=== PATIENT | male | born 1965 | race Caucasian/White ===

== ENCOUNTER 2016-07-17 08:29 | Emergency (ER) | payer MEDICAID ==
--- NOTE | ~2016-07-17 | CT55 ---
[facility] A Service of [facility] RADIOLOGY TEXT RESULTS PATIENT: CASSANDRA CUENCA LOCATION: [facility] : 63 UNIT #: [id number] AGE: [address]: Mariela Philip APRN SEX: M ORDER DR: [id number] [facility] [address] [place], [place] [address] [id number] E MR#: [id number] #: [id number] NAME: CASSANDRA CUENCA : 1965 SEX: M STUDY DATE/TIME: 07/17/2016 9:17 UNIT: [facility] ROOM: STUDY DESCRIPTION: CT Chest W Con Attending Physician: Mariela Philip A.P.R.N. Ordering Physician: Francisco Ayala M.D. Primary Care Physician: Primary Care Physician No MEDICAL IMAGING REPORT This report is preliminary unless electronic signature is present EXAM CT of the chest with contrast INDICATIONS Leukocytosis with a white count of 11.9. Patient fell last night and reports left rib pain. TECHNIQUE Axial CT images were obtained from the thoracic inlet through the dome of the diaphragm following the administration of intravenous contrast material. This CT exam was performed with one or more of the following radiation dose reduction techniques: Automatic exposure control, adjustment of mA and/or kV according to patient size, and iterative reconstruction. FINDINGS This patient does have left-sided rib fractures. There are acute fractures identified within the left sixth through eighth ribs. Patient also has old left 9, 10 and 12 fractures. There is probably also an old left 11th rib fracture, which is not well seen on these images. There is no pneumothorax identified, although the patient does have a trace left hemothorax. There is also some soft tissue stranding seen along the left lateral thoracic wall likely reflecting some intramuscular hematoma. The thyroid gland, trachea and esophagus appear unremarkable. There is no pericardial effusion. There are some coronary artery calcifications. Right lung appears clear. There is some scarring versus atelectasis identified within the lingula. No aggressive osseous abnormalities are seen. Patient's CT of the abdomen and pelvis will be dictated separately. IMPRESSION 1. Acute left 6th through 8th rib fractures with an associated trace left hemothorax. No pneumothorax is seen. Patient does appear to have some scarring versus atelectasis within the lingula. [facility] A Service of [facility] RADIOLOGY TEXT RESULTS PATIENT: CASSANDRA CUENCA LOCATION: [facility] : 63 UNIT #: [id number] AGE: [address]: Mariela Philip APRN SEX: M ORDER DR: 2. Old left-sided rib fractures are noted as well. Please see the body of the report for any other additional incidental findings. Dictated by... Genevieve Villasenor M.D. THIS IS AN ELECTRONICALLY VERIFIED REPORT Genevieve Villasenor M.D. at 07/19/2016 9:18 AM AFF/psc TD: 07/17/2016 20:52 JOB #: [id number] MEDICAL IMAGING REPORT COPY
--- NOTE | ~2016-07-17 | CT2 ---
[facility] A Service of [facility] & [facility] RADIOLOGY TEXT RESULTS PATIENT: CASSANDRA CUENCA LOCATION: [facility] : 63 UNIT #: [id number] AGE: [address]: Mariela Philip APRN SEX: M ORDER DR: [id number] [facility] [address] [place], [place] [address] [id number] E MR#: [id number] Acc #: [id number] NAME: CASSANDRA CUENCA : 1965 SEX: M STUDY DATE/TIME: 07/17/2016 9:17 UNIT: [facility] ROOM: STUDY DESCRIPTION: CT Abd and Pelv W Cont Attending Physician: Mariela Philip A.P.R.N. Ordering Physician: Ed Chad Ayala M.D. Primary Care Physician: Primary Care Physician No MEDICAL IMAGING REPORT This report is preliminary unless electronic signature is present EXAM Abdomen and pelvis CT HISTORY Fell last night, left rib pain, elevated white blood cell count. COMMENTS This CT exam was performed with one or more of the following radiation dose reduction techniques: Automatic exposure control, adjustment of mA and/or kV according to patient size, and iterative reconstruction. CT of the abdomen and pelvis performed during the intravenous administration of 70 mL of Isovue-370. Imaging acquired in the axial plane followed by sagittal and coronal reformatted images. There is a separate chest CT and please refer to that report. CT ABDOMEN: There are calcified lesions in the dome of the liver, probably granulomas. Suspect mild fatty infiltration of the liver allowing for the presence of IV contrast media. Splenic granulomata noted. Gallbladder unremarkable. Adrenal glands, pancreas, kidneys within normal limits. There is a small hiatal hernia. Evaluation of the pelvis shows a partially decompressed urinary bladder. Cannot exclude some bladder wall thickening and please correlate for any clinical concern for cystitis given elevated white blood cell count. There are a few diverticula in the sigmoid colon but there is no CT evidence for diverticulitis. There is moderate amount of stool in the transverse colon and right colon, especially the cecum. Some feculent material probably is in the terminal ileum. This can simply be due to an incompetent ileocecal valve. There is nothing to suggest bowel obstruction. No distended loops of small bowel are seen. The appendix is not definitely seen. I cannot exclude acute appendicitis but I do not see secondary signs of appendicitis. There is no drainable fluid collection [facility] A Service of [facility] & [facility] RADIOLOGY TEXT RESULTS PATIENT: CASSANDRA CUENCA LOCATION: [facility] : 63 UNIT #: [id number] AGE: [address]: Mariela Philip E BUSINESS SPECIALIST SEX: M ORDER DR: or free intraperitoneal air suspected. There are atherosclerotic vascular calcifications in the abdominal aorta and iliac vessels. There is a subacute appearing rib fracture left posterolateral rib, and there are more acute appearing rib fractures on the left side, multiple essentially nondisplaced. See the separate chest CT dictation. Degenerative changes in the lumbar spine. IMPRESSION 1. Partial demonstration of left rib fractures; one of these appears to be subacute. Others appear to be acute. See the separate CT chest dictation. 2. Suspect fatty infiltration of liver. Please correlate further clinically. 3. Atherosclerotic vascular calcifications. 4. The appendix is not seen but I do not see secondary signs of appendicitis. Please correlate clinically. There is nothing to suggest bowel obstruction. There is a moderate amount of right colon stool and there is some fecalization of the distal small bowel, but there is nothing to suggest small bowel obstruction. 5. Occasional diverticula sigmoid colon but no CT evidence for diverticulitis. 6. Evidence of old trauma to the right iliac bone. No drainable fluid collection or free intraperitoneal air. 7. Small hiatal hernia. Dictated by... Lala Menendez M.D. THIS IS AN ELECTRONICALLY VERIFIED REPORT Lala Menendez M.D. at 07/18/2016 11:38 AM MAKENZIE/lexy TD: 07/17/2016 21:36 JOB #: [id number] MEDICAL IMAGING REPORT COPY
[2016-07-17 08:27] LABS: BASOPHIL# 0.1 X10e3 (0-0.3); EOSINOPHIL# 0.1 X10e3 (0-0.7); EOSINOPHIL% 0.9 % (0.0-7.0); HEMATOCRIT 47.9 % (38.0-50.0); LYMPHOCYTE# 1.2 X10e3 (1.0-3.5); LYMPHOCYTE% 9.8 % (17.0-45.0); MEAN CELL VOLUME 93.9 FL (83-96); MEAN CORPUSCULAR HEMOGLOBIN 31.4 PG (28-34); MEAN CORPUSCULAR HGB CONC 33.5 g/dL (30-36); MEAN PLATELET VOLUME 7.9 FL (6.5-11.5); MONOCYTE# 0.7 X10e3 (0-1.0); NEUTROPHIL# 9.8 X10e3 (1.5-7.1); NEUTROPHIL% 82.3 % (40-75); PLATELET COUNT 192 X10e3 (140-420); WHITE BLOOD COUNT 11.9 X10e3 (4.0-10.5)
[2016-07-17 08:28] LABS: DIFF IND NO
[2016-07-17 08:52] LABS: ALKALINE PHOSPHATASE 68 U/L (32-92); ALT (SGPT) 36 U/L (10-40); AST (SGOT) 26 U/L (10-42); BILIRUBIN,TOTAL 0.6 mg/dL (0.2-2.0); BLOOD UREA NITROGEN 13 mg/dL (9-23); BUN/CREATININE RATIO 18.57; CALCIUM SERUM 9.3 mg/dL (8.4-10.2); CARBON DIOXIDE 25 mmol/L (22-31); CHLORIDE 107 mmol/L (100-111); CREATININE SERUM 0.7 mg/dL (0.6-1.4); GLOM FILT RATE Estimated ABOVE60 mL/min (>60); GLUCOSE FASTING 138 mg/dL (70-110); PROTEIN TOTAL SERUM 7.4 g/dL (6.0-8.3); SODIUM 136 mmol/L (135-145)
== END 2016-07-17 10:45 | disposition home or self-care (01) ==
LOC: CED 08:29
PROVIDERS: Nurse Practitioner
DX: S22.42XA Multiple fractures of ribs, left side, initial encounter for closed fracture (principal); R03.0 Elevated blood-pressure reading, without diagnosis of hypertension; W01.198A Fall on same level from slipping, tripping and stumbling with subsequent striking against other object, initial encounter; Y92.009 Unspecified place in unspecified non-institutional (private) residence as the place of occurrence of the external cause; F17.210 Nicotine dependence, cigarettes, uncomplicated
CPT/HCPCS: 36415; 71260; 74177; 80053; 85025; 94010; 99284; Q9967

== ENCOUNTER 2016-09-08 16:02 | Emergency (ER) | payer MEDICAID ==
--- NOTE | ~2016-09-08 | CR230 ---
[facility] A Service of [facility] RADIOLOGY TEXT RESULTS PATIENT: CASSANDRA CUENCA LOCATION: [facility] : 63 UNIT #: [id number] AGE: [address]: Javier Bravo MD SEX: M ORDER DR: [id number] [facility] [address] [place] [address] [place], [place] [address] [id number] E MR#: [id number] Acc #: [id number] NAME: CASSANDRA CUENCA : 1965 SEX: M STUDY DATE/TIME: 09/08/2016 16:30 UNIT: [facility] ROOM: STUDY DESCRIPTION: CR Shoulder Min 2 View Rt Attending Physician: Reji Bravo M.D. Referring Physician: Brayden Jones M.D. Ordering Physician: Francisco Ayala M.D. Primary Care Physician: No Primary Care Physician MEDICAL IMAGING REPORT This report is preliminary unless electronic signature is present EXAM Right shoulder, 3 views. INDICATIONS Shoulder pain for 1 month. No injury. COMPARISON No comparisons. FINDINGS There is narrowing of the AC joint with osteophyte formation. The glenohumeral joint is intact and there is no fracture. There is a calcified granuloma in the right lung. IMPRESSION AC joint narrowing and degenerative changes. No fracture or dislocation. Dictated by... Nitin Boykin M.D. THIS IS AN ELECTRONICALLY VERIFIED REPORT Nitin Boykin M.D. at 09/09/2016 9:33 AM GORDY/jorgito TD: 09/08/2016 18:14 JOB #: [id number] MEDICAL IMAGING REPORT Page 1 of 1 COPY
== END 2016-09-08 18:00 | disposition home or self-care (01) ==
LOC: CED 16:02
DX: M19.011 Primary osteoarthritis, right shoulder (principal); F17.210 Nicotine dependence, cigarettes, uncomplicated; Z98.890 Other specified postprocedural states
CPT/HCPCS: 73030; 96372; 99283; J1885

== ENCOUNTER 2016-11-13 16:23 | Emergency (ER) | payer MEDICAID | END 2016-11-13 16:52 | disposition left against medical advice (07) | LOC: CED 16:23 | DX: Z53.21 Procedure and treatment not carried out due to patient leaving prior to being seen by health care provider (principal) ==

== ENCOUNTER 2017-01-26 21:38 | Emergency (ER) | payer MEDICAID | END 2017-01-26 21:50 | disposition left against medical advice (07) | LOC: CED 21:38 | DX: Z53.21 Procedure and treatment not carried out due to patient leaving prior to being seen by health care provider (principal) ==